=== PATIENT | male | born 1985 | race Caucasian/White ===

== ENCOUNTER 2017-07-23 23:59 | Emergency (ER) | payer SELFPAY ==
[~2017-07-23] VITALS: Ht 167.6 cm; Wt 71.0 kg
[2017-07-24] VITALS: BP 132/84; PULSE 86; RESP 16; TEMP 97.8; O2SAT 98
[2017-07-24] MEDS ORDERED: NAPROXEN 500 MG TAB PO ONE (00:45)
[2017-07-24] MEDS ORDERED: CYCL10TA PO (00:45)
[2017-07-24] MEDS ORDERED: DICL75TA PO (00:45)
[2017-07-24] MEDS ORDERED: CYCLOBENZAPRINE HCL 10 MG TAB PO ONE (00:45)
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
== END 2017-07-24 01:15 | disposition home or self-care (01) ==
LOC: NEPD 23:59
DX: M54.5 Low back pain (principal); G89.29 Other chronic pain; Z72.0 Tobacco use
CPT/HCPCS: 99283